=== PATIENT | female | born 1945 | race Caucasian/White ===

== ENCOUNTER 2019-02-11 10:54 | Outpatient (CLI) | payer MEDICARE | END 2019-02-11 23:59 | disposition home or self-care (01) | LOC: VAS 10:54 | DX: G45.9 Transient cerebral ischemic attack, unspecified (principal) | CPT/HCPCS: 93880 ==

== ENCOUNTER 2024-09-14 08:57 | Day surgery (SDC) | payer MEDICARE ==
[2024-09-13 15:48] LABS: BASOPHILS % (AUTO) 0.6 % (0-1); EOSINOPHILS # (AUTO) 0.4 X10'3 (0-0.9); EOSINOPHILS % (AUTO) 5.7 % (0-6); HEMATOCRIT 41.3 % (35.0-45.0); HEMOGLOBIN 13.7 g/dl (12.0-16.0); LYMPHOCYTES % (AUTO) 30.6 % (21-51); MEAN CORPUSCULAR HEMOGLOBIN 32.5 PG (27.0-31.0); MEAN CORPUSCULAR HGB CONC 33.2 g/dL (33.0-36.5); MEAN CORPUSCULAR VOLUME 97.7 FL (78-98); MEAN PLATELET VOLUME 8.2 FL (7.4-10.4); MONOCYTES # (AUTO) 0.6 X10'3 (0-0.9); MONOCYTES % (AUTO) 8.7 % (2-12); NEUTROPHILS # (AUTO) 3.5 X10'3 (1.8-7.7); NEUTROPHILS % (AUTO) 54.4 % (42-75); PLATELET COUNT 299 X10'3 (140-440); RED BLOOD COUNT 4.23 X10'6 (4.20-5.60); RED CELL DISTRIBUTION WIDTH 13.8 % (11.5-14.5); WHITE BLOOD COUNT 6.4 X10'3 (4.5-11.0)
[2024-09-13 15:49] LABS: ALBUMIN 3.9 G/DL (3.4-5.0); ANION GAP 9 (8-16); BLOOD UREA NITROGEN 15 MG/DL (7-18); BUN/CREATININE RATIO 14.6 (10.0-20.0); CALCIUM 10.2 MG/DL (8.5-10.1); CHLORIDE 103 MMOL/L (99-107); CREATININE 1.03 MG/DL (0.40-0.90); GLUCOSE 107 MG/DL (70-104); POTASSIUM 4.7 MMOL/L (3.5-5.1); SODIUM 139 MMOL/L (135-145); TOTAL CARBON DIOXIDE 27.2 MMOL/L (24-32); eGFR 52 ML/MIN
[2024-09-13 16:17] LABS: PROTHROMBIN TIME 10.4 SECONDS (9.0-12.0)
[2024-09-13 16:18] LABS: APTT 27 SECONDS (22-32)
[~2024-09-14] VITALS: Ht 160 cm; Wt 70.2 kg
[2024-09-14] VITALS (11 sets, daily range): BP systolic 128–171; BP diastolic 71–102; PULSE 57–81; RESP 11–16; TEMP 97.8; O2SAT 93–97
[2024-09-14] MEDS ORDERED: LORazepam 0.5 MG tablet PO PRN (09:30)
[2024-09-14] MEDS: normal saline 1,000 ML IV SCH (10:36)
[2024-09-14] MEDS: diphenhydrAMINE 25mg capsule PO PRN (10:37)
[2024-09-14] MEDS ORDERED: DIAZ10TA5 PO (11:03)
[2024-09-14] MEDS ORDERED: CELE-148 PO (11:03)
[2024-09-14] MEDS ORDERED: ALBU90AE3 (11:03)
[2024-09-14] MEDS ORDERED: DULO60CA65 PO (11:03)
[2024-09-14] MEDS ORDERED: GABA300C PO (11:03)
[2024-09-14] MEDS ORDERED: LISI40TA13 PO (11:03)
[2024-09-14] MEDS ORDERED: TEMA15CA PO (11:03)
[2024-09-14] MEDS ORDERED: CEPH500C2 (11:03)
[2024-09-14] MEDS ORDERED: VERA80TA7 PO (11:03)
[2024-09-14] MEDS ORDERED: LIPA1CAP18 (11:03)
[2024-09-14] MEDS ORDERED: MONT-40 PO (11:03)
[2024-09-14] MEDS ORDERED: METO-395 PO (11:03)
[2024-09-14] MEDS ORDERED: ASPI-1265 PO (11:29)
[2024-09-14] MEDS ORDERED: [UNRECOGNIZED DRUG - OTHER] (11:29)
[2024-09-14] MEDS ORDERED: FLUT16SP BOTHNARES (11:29)
[2024-09-14] MEDS ORDERED: Fish Oil (11:29)
[2024-09-14] MEDS ORDERED: CHOL100046 PO (11:29)
[2024-09-14] MEDS ORDERED: Calcium (11:29)
[2024-09-14] MEDS ORDERED: FEXO-219 (11:29)
[2024-09-14] MEDS ORDERED: HYDR-3964 PO (11:29)
[2024-09-14] MEDS ORDERED: ROSU10TA72 PO (11:29)
[2024-09-14] MEDS ORDERED: Stool Softener (11:29)
[2024-09-14] MEDS ORDERED: Preparation H (11:29)
[2024-09-14] MEDS ORDERED: MULT-1141 PO (11:29)
[2024-09-14] MEDS ORDERED: [UNRECOGNIZED DRUG - CODE] (11:29)
[2024-09-14] MEDS ORDERED: HAIR SKIN NAILS (11:29)
[2024-09-14] MEDS ORDERED: MAGNESIUM ZINC PO (11:29)
[2024-09-14] MEDS ORDERED: DOCU-337 PO (11:29)
[2024-09-14] MEDS ORDERED: [UNRECOGNIZED DRUG - OTHER] (11:29)
[2024-09-14] MEDS ORDERED: MECO10005 PO (11:29)
[2024-09-14] MEDS ORDERED: GLUC15006 (11:29)
[2024-09-14] MEDS ORDERED: TRU (11:29)
[2024-09-14] MEDS ORDERED: VITA0.4T2 PO (11:29)
[2024-09-14] MEDS ORDERED: heparin 1,000unit/ml 10ml vial 10 ML ONE (11:32)
[2024-09-14] MEDS ORDERED: iohexol 350MG/ML 100ml bottle IV ONE (11:32)
[2024-09-14] MEDS ORDERED: iohexol 350 MG/ML 50ML vial IV ONE (11:32)
[2024-09-14] MEDS ORDERED: verapamil 2.5 mg/ml inj IV ONE (11:32)
[2024-09-14] MEDS ORDERED: LIDOcaine 1% (10mg/ml) 2ml vial ONE (11:32)
[2024-09-14] MEDS ORDERED: nitroGLYCERIN 500mcg/5mL D5W 5 ML IV ONE ×2 (11:33→12:16)
[2024-09-14] MEDS ORDERED: midazolam 1 mg/ML 2ml injection ONE (12:03)
[2024-09-14] MEDS ORDERED: fentaNYL/PF 50MCG/1 ML 2ML syringe ONE (12:03)
[2024-09-14] MEDS ORDERED: normal saline 1000ml 1,000 ML IV SCH (13:20)
== END 2024-09-14 16:52 | disposition home or self-care (01) ==
LOC: SSTAY O 08:57
PROVIDERS: ATTEND Internal Medicine Cardiovascular Disease
DX: R94.39 Abnormal result of other cardiovascular function study (principal); I25.10 Atherosclerotic heart disease of native coronary artery without angina pectoris; T82.855A Stenosis of coronary artery stent, initial encounter; I10 Essential (primary) hypertension; E78.5 Hyperlipidemia, unspecified; J44.9 Chronic obstructive pulmonary disease, unspecified; Z95.5 Presence of coronary angioplasty implant and graft
CPT/HCPCS: 36415; 80048; 85025; 85610; 85730; 93005; 93458; 99152; A6258; A6402; C1725; C1894; J1644; J2003; J2250; J3010; J3490; J7030; Q0163; Q9967; Z7610; 76937; 99153